=== PATIENT | male | born 2000 | race Hispanic/Latino ===

== ENCOUNTER 2024-03-10 19:20 | Emergency (ER) | payer SELFPAY ==
[2024-03-10] MEDS ORDERED: NA CHLORIDE 0.9% 1,000 ML ONE (20:16)
[2024-03-10] MEDS ORDERED: KETOROLAC 30 MG/ML INJ ONE (20:16)
[2024-03-10 20:27] LABS: Absolute Basophils 0.1 K/uL (0-0.5); Absolute Lymphocytes (CBC) 2.1 K/uL (0.7-4.9); Absolute Monocytes 0.7 K/uL (0.1-1.3); Absolute Neutrophil 7.1 K/uL (1.8-8.0); Basophils % 0.9 % (0-1.3); Hematocrit 44.3 % (39.6-49.0); Lymphocytes % 20.7 % (15.3-44.8); MCH 31.2 pg (27.0-35.0); MCV 91.7 fL (80-100); MPV 9.7 fL (7.6-11.3); Neutrophils % 71.4 % (41.7-73.7); Nucleated Red Blood Cells % 0.1 % (0-0); Platelets 274 thou/uL (152-406); RBC Red Blood Cell Count 4.83 M/uL (4.33-5.43); Red Cell Distribution Width 12.6 % (12.1-15.2)
[2024-03-10 20:37] LABS: SARS-CoV-2 Antigen CONTROL BLUE LINE VIS/BG OK; SARS-CoV-2 Antigen Rapid Res Negative (Negative)
[2024-03-10 20:56] LABS: Albumin 4.5 g/dL (3.4-5.0); Albumin/Globulin Ratio 1.1 (1.1-1.8); Anion Gap 7.7 mEq/L (5.0-15.0); Bilirubin Total 0.6 mg/dL (0.2-1.0); Globulin 4.2 g/dL (2.3-3.5); Potassium 3.7 mEq/L (3.5-5.1); Protein, Total 8.7 g/dL (6.4-8.2)
--- NOTE | 2024-03-10 22:11 | RAD REPORT ---
EXAM DESCRIPTION: CT - Chest Abdomen Pelvis W Cont - 03/10/2024 9:35 pm CLINICAL HISTORY: abd pain,sob;Chest pain COMPARISON: No comparisons TECHNIQUE: Thin axial CT images of the chest, abdomen, and pelvis, performed following intravenous a dministration of 100mL Isovue-300. Multiplanar reformats were generated and reviewed. All CT scans are performed using dose optimization technique as appropriate and may include automated exposure control or mA/KV adjustment according to patient size. FINDINGS: The lungs are clear.No pleural or pericardial effusion.No intrathoracic adenopathy. The liver, spleen, pancreas, adrenal glands and kidneys are within normal limits. No bowel obstruction, free air, free fluid or abscess. Normal appendix. No pathologic lymphadenopath y in the abdomen or pelvis. No worrisome osseous finding. IMPRESSION: Normal CT of the chest, abdomen, and pelvis.
--- NOTE | 2024-03-10 22:18 | ER ---
Nurse's Notes [facility] Name: Oziel Campos Age: 24 yrs Sex: Male : 2000 Arrival Date: 03/10/2024 Time: 19:20 Bed 12 Private MD: Diagnosis: Upper abdominal pain, unspecified Presentation: 03/10 19:51 Chief complaint: Patient states: Pt states he had flank and left upper abdominal pain me1 on Monday. Pt states pain in flank has resolved and pain in LUQ is getting better. Pt states it is a different feeling that he can't really describe and that he is now SOB. Pt states he has a dull pain in LUQ with deep inspiration. Pt denies N/V/D, fever/chills. Coronavirus screen: At this time, the client does not indicate any symptoms associated with coronavirus-19. Ebola Screen: No symptoms or risks identified at this time. Initial Sepsis Screen: Does the patient meet any 2 criteria? No. Patient's initial sepsis screen is negative. Does the patient have a suspected source of infection? No. Patient's initial sepsis screen is negative. Risk Assessment: Do you want to hurt yourself or someone else? Patient reports no desire to harm self or others. Onset of symptoms is unknown. 19:51 Method Of Arrival: Ambulatory [facility] [place] 19:51 Acuity: SANDRA 3 me1 Triage Assessment: 19:56 General: Appears in no apparent distress. Behavior is calm, cooperative. Pain: me1 Complains of pain in left upper quadrant. EENT: No signs and/or symptoms were reported regarding the EENT system. Neuro: Level of Consciousness is awake, alert, obeys commands, Oriented to person, place, time, situation. Cardiovascular: Capillary refill < 3 seconds Patient's skin is warm and dry. Respiratory: Reports shortness of breath Airway is patent Respiratory effort is even, unlabored, Respiratory pattern is regular, symmetrical, Onset: The symptoms/episode began/occurred gradually, the patient reports symptoms have resolved. Historical: - Allergies: 19:55 No Known Allergies; me1 - Home Meds: 19:55 None [Active]; me1 - PMHx: 19:55 None; me1 - PSHx: 19:55 None; me1 - Immunization history:: Adult Immunizations unknown. - Infectious Disease History:: Denies. - Social history:: Smoking status: Patient reports the use of cigarette tobacco products, denies chronic smoking, but will smoke occasionally. Screenin:40 [facility] ED Fall Risk Assessment (Adult) History of falling in the last 3 months, me1 including since admission No falls in past 3 months (0 pts) Confusion or Disorientation No (0 pts) Intoxicated or Sedated No (0 pts) Impaired Gait No (0 pts) Mobility Assist Device Used No (0 pt) Altered Elimination No (0 pt) Score/Fall Risk Level 0 - 2 = Low Risk Maintained a safe environment, Provided non-skid footwear, Hourly rounding (assess needs \T\ fall precautionary measures) done. Abuse screen: Denies threats or abuse. Nutritional screening: No deficits noted. Tuberculosis screening: No symptoms or risk factors identified. Assessment: 20:00 General: Appears uncomfortable, well groomed, well developed, well nourished, Behavior me1 is calm, cooperative, appropriate for age, Reports Pt states he had flank and left upper abdominal pain on Monday. Pt states pain in flank has resolved and pain in LUQ is getting better but now patient feels SOB. Pt states he has a dull pain in LUQ with deep inspiration. Pt denies N/V/D, fever/chills. Pain: Complains of pain in left upper quadrant Pain does not radiate. Pain currently is 6 out of 10 on a pain scale. Quality of pain is described as dull, Pain began gradually, Is continuous. Neuro: Level of Consciousness is awake, alert, obeys commands, Oriented to person, place, time, situation, Appropriate for age. Cardiovascular: Patient's skin is warm and dry. Cardiovascular: Rhythm is regular. Respiratory: Airway is patent Respiratory effort is even, unlabored, Respiratory pattern is regular, symmetrical, Breath sounds are clear bilaterally. Respiratory: Reports shortness of breath. GI: No signs and/or symptoms were reported involving the gastrointestinal system. GI: Reports upper abdominal pain. : No signs and/or symptoms were reported regarding the genitourinary system. EENT: No signs and/or symptoms were reported regarding the EENT system. Derm: Skin is intact, is healthy with good turgor, Skin is pink, warm \T\ dry. Musculoskeletal: No signs and/or symptoms reported regarding the musculoskeletal system. 23:07 Reassessment: Patient appears in no apparent distress at this time. Patient states vc1 feeling better. Patient states symptoms have improved. Vital Signs: 19:51 BP 164 / 92; Pulse 61; Resp 18; Temp 97.2(TE); Pulse Ox 100% ; Weight 95.25 kg; Height me1 5 ft. 7 in. ; Pain 6/10; 21:40 BP 152 / 81; Pulse 80; Resp 17; Pulse Ox 100% on R/A; me1 23:08 BP 148 / 78; Pulse 78; Resp 16; Pulse Ox 99% ; vc1 19:51 Body Mass Index 32.89 (95.25 kg, 170.18 cm) me1 19:51 Pain Scale: Adult nd1 ED Course: 19:24 Patient arrived in ED. im 19:24 Ann Pickering PA-C is PHCP. sb4 19:24 Sean Lee MD is Attending Physician. sb4 19:51 Belinda Samuel, CARI is Primary Nurse. me1 19:55 Triage completed. me1 19:56 Arm band placed on left wrist. me1 20:13 SARS RAPID Sent. me1 20:13 CBC with Diff Sent. me1 20:13 CMP Sent. me1 20:13 Lipase Sent. me1 20:13 Initial lab(s) drawn, by nd, sent to lab. COVID swab sent to lab. Inserted saline lock: me1 22 gauge in right antecubital area, using aseptic technique. 21:35 CT Chest, Abdomen, Pelvis - W/Contrast In Process Unspecified. EDMS 21:40 Patient has correct armband on for positive identification. Bed in low position. Call me1 light in reach. Side rails up X2. Provided Education on: POC. Verbalized understanding. . Client placed on continuous cardiac and pulse oximetry monitoring. NIBP monitoring applied. Pulse ox on. NIBP on. 21:40 No provider procedures requiring assistance completed. me1 23:08 IV discontinued, intact, bleeding controlled, No redness/swelling at site. Pressure vc1 dressing applied. Administered Medications: 20:21 Drug: NS 0.9% IV 1000 ml IV at 1 bolus Per protocol; 1000 mL bolus Route: IV; Rate: 1 me1 bolus; Site: right antecubital; 21:46 Follow up: Response: No adverse reaction; IV Status: Completed infusion; IV Intake: me1 1000ml 20:24 Drug: TORadol - Ketorolac IVP 15 mg IVP once Route: IVP; Site: right antecubital; me1 21:46 Follow up: Response: No adverse reaction; Pain is decreased me1 Medication: 21:40 VIS not applicable for this client. me1 Intake: 21:46 IV: 1000ml; Total: 1000ml. me1 Outcome: 22:18 Discharge ordered by . melissa 23:07 Discharged to home ambulatory, with family, vc1 23:07 Condition: good 23:07 Discharge instructions given to patient, Instructed on discharge instructions, follow up and referral plans. Demonstrated understanding of instructions, follow-up care, Prescriptions given X 2, 23:08 Patient left the ED. vc1 Signatures: Dispatcher [employer] Rebecca Schwartz RN RN vc1 Ann Pickering, PAFranciscoC PALing sb4 Maria Luz Gan Michelle RN RN me1 Corrections: (The following items were deleted from the chart) 21:41 19:51 Chief complaint: Patient states: Pt states he had flank and left upper abdominal me1 pain on Monday. Pt states pain in flank has resolved and pain in LUQ is getting better. Pt states it is a different feeling that he can't really describe and that he is now SOB. Pt states he has a dull pain in LUQ with deep inspiration. Pt denies N/V/D, fever/chills. me1
--- NOTE | 2024-03-10 22:18 | EDPHYS ---
Physician Documentation [facility] Name: Oziel Campos Age: 24 yrs Sex: Male : 2000 Arrival Date: 03/10/2024 Time: 19:20 Bed 12 Private MD: ED Physician Sean Lee HPI: 03/10 20:03 This 24 yrs old Male presents to ER via Ambulatory with complaints of Rib sb4 Pain, Shortness Of Breath. 20:03 patient reports pain in his LUQ/left lower chest wall x 2 weeks now. reports sb4 intermittent shortness of breath as well. came in today because he felt like he couldn't breathe. he denies any other associated signs and symptoms- no vomiting, diarrhea, fever, cough, chest pain. denies any medical history. has not taken any OTC meds for the pain. Historical: - Allergies: 19:55 No Known Allergies; me1 - Home Meds: 19:55 None [Active]; me1 - PMHx: 19:55 None; me1 - PSHx: 19:55 None; me1 - Immunization history:: Adult Immunizations unknown. - Infectious Disease History:: Denies. - Social history:: Smoking status: Patient reports the use of cigarette tobacco products, denies chronic smoking, but will smoke occasionally. ROS: 20:03 Constitutional: Negative for fever, chills, and weight loss, sb4 20:03 Respiratory: Positive for shortness of breath, 20:03 Abdomen/GI: Positive for abdominal pain, 20:03 All other systems are negative, Exam: 20:03 Constitutional: This is a well developed, well nourished patient who is awake, alert, sb4 and in no acute distress. Head/Face: Normocephalic, atraumatic. Eyes: Extra-ocular motions intact. Periorbital areas with no swelling, redness, or edema. ENT: Mucous membranes moist. Cardiovascular: Regular rate and rhythm with a normal S1 and S2. Respiratory: Lungs have equal breath sounds bilaterally, clear to auscultation and percussion. No rales, rhonchi or wheezes noted. No increased work of breathing, no retractions or nasal flaring. Abdomen/GI: Soft, non-tender, no distension. Skin: Warm, dry with normal turgor. Normal color with no rashes, no lesions, and no evidence of cellulitis. MS/ Extremity: Pulses equal, no cyanosis. Neurovascular intact. Full, normal range of motion. Neuro: Awake and alert, GCS 15, oriented to person, place, time, and situation. Motor strength 5/5 in all extremities. Sensory grossly intact. Vital Signs: 19:51 BP 164 / 92; Pulse 61; Resp 18; Temp 97.2(TE); Pulse Ox 100% ; Weight 95.25 kg; Height me1 5 ft. 7 in. ; Pain 6/10; 21:40 BP 152 / 81; Pulse 80; Resp 17; Pulse Ox 100% on R/A; me1 23:08 BP 148 / 78; Pulse 78; Resp 16; Pulse Ox 99% ; vc1 19:51 Body Mass Index 32.89 (95.25 kg, 170.18 cm) me1 19:51 Pain Scale: Adult me1 MDM: 19:25 Patient medically screened. sb4 22:17 Data reviewed: vital signs, nurses notes, lab test result(s), radiologic studies, and sb4 as a result, I will discharge patient. Counseling: I had a detailed discussion with the patient and/or guardian regarding the historical points, exam findings, and any diagnostic results supporting the discharge/admit diagnosis, lab results, radiology results, the need for outpatient follow up, for definitive care, to return to the emergency department if symptoms worsen or persist or if there are any questions or concerns that arise at home. 03/10 20:02 Order name: CBC with Diff; Complete Time: 20:28 sb4 03/10 20:02 Order name: CMP; Complete Time: 20:57 sb4 03/10 20:02 Order name: Lipase; Complete Time: 20:57 sb4 03/10 20:02 Order name: SARS RAPID; Complete Time: 20:39 sb4 03/10 20:07 Order name: CT Chest, Abdomen, Pelvis - W/Contrast; Complete Time: 22:12 sb4 03/10 20:02 Order name: IV Saline Lock; Complete Time: 20:13 sb4 03/10 20:02 Order name: Labs collected and sent; Complete Time: 20:13 sb4 Administered Medications: 20:21 Drug: NS 0.9% IV 1000 ml IV at 1 bolus Per protocol; 1000 mL bolus Route: IV; Rate: 1 me1 bolus; Site: right antecubital; 21:46 Follow up: Response: No adverse reaction; IV Status: Completed infusion; IV Intake: me1 1000ml 20:24 Drug: TORadol - Ketorolac IVP 15 mg IVP once Route: IVP; Site: right antecubital; me1 21:46 Follow up: Response: No adverse reaction; Pain is decreased me1 Disposition: 03/11 05:18 Co-signature as Attending Physician, Saen Lee MD I agree with the assessment sp4 and plan of care. I reviewed the patient's care provided by the Advanced Practice Provider and agree with the diagnosis and treatment plan. Disposition Summary: 03/10/24 22:18 Discharge Ordered Notes: Location: Home sb4 Problem: an ongoing problem sb4 Symptoms: have improved sb4 Condition: Stable sb4 Diagnosis - Upper abdominal pain, unspecified sb4 Followup: sb4 - With: Private Physician - When: As needed - Reason: Recheck today's complaints, Re-evaluation by your physician Discharge Instructions: - Discharge Summary Sheet sb4 - Abdominal Pain, Adult, [id number] sb4 Forms: - Patient Portal Instructions sb4 - Leadership Thank You Letter sb4 Prescriptions: - Pepcid 20 mg Oral Tablet - take 1 tablet ORAL route every 12 hours for 5 days; 10 tablet; Refills: 0, sb4 Product Selection Permitted - Diclofenac Sodium 75 mg Oral Tablet Sustained Release - take 1 tablet ORAL route 2 times per day; 30 tablet; Refills: 0, Product sb4 Selection Permitted Signatures: Dispatcher [employer] Ann Malin PA-C PALing sb4 Sean Lee MD MD sp4 Belinda Samuel RN RN me1 Corrections: (The following items were deleted from the chart) 03/10 20:14 20:03 Abdomen Pelvis W Con+CT.RAD.BRZ ordered. RAKESH CAMERON
[2024-03-11 03:53] VITALS: TEMP 97.2
[2024-03-11 03:55] VITALS: BP 148/78; O2SAT 99
== END 2024-03-10 23:08 | disposition home or self-care (01) ==
LOC: ER 19:20
DX: R10.12 Left upper quadrant pain (principal)
CPT/HCPCS: 36415; 71260; 74177; 80053; 83690; 85025; 87811; 96361; 96374; 99284; J7030; Q9967